=== PATIENT | female | born 1995 | race Caucasian/White ===

== ENCOUNTER 2020-12-17 01:01 | Emergency (ER) | payer MEDICAID, SELFPAY ==
--- NOTE | ~2020-12-17 | US_ITS ---
US OB <= 14 weeks fetus DATE: 12/17/2020 07:18 INDICATION: Abdominal pain TECHNIQUE: Real-time imaging and Doppler evaluation via transabdominal approach COMPARISON: None FINDINGS: Live west intrauterine gestation. normally shaped gestational sac with normal am ount and a fluid, normal surrounding hyperechogenicity consistent with normal decidual reaction. Hear t rate 157 bpm. [place]-rump length 3.79 cm, consistent with 10 weeks 5 days estimated gestational age. Tomosynthesis s ac size of 4.00 cm is consistent with 9 weeks 4 days. 1.4 x 1.9 cm right ovarian cyst. There is blood flow to the right ovary. The left ovary is not demons trated. No pelvic free fluid collection is identified. IMPRESSION: Live single intrauterine gestation; 10 weeks 5 days estimated age by crown-rump mechelle gth 1.4 x 1.9 cm right ovarian cyst Reviewed, dictated and finalized at [facility] Reviewed, dictated and finalized at [facility]. MANAGER IMPRESSION: Live single intrauterine gestation; 10 weeks 5 days estimated age by crown-rump length 1.4 x 1.9 cm right ovarian cyst
[2020-12-17 01:03] VITALS: BP 134/100; PULSE 89; RESP 16; TEMP 36.8; O2SAT 100
[2020-12-17] MEDS: SODIUM CHLORIDE 0.9% IV 1,000 ML 999 ML IV CONT (01:33)
[2020-12-17 01:35] LABS: Basophils Percent Auto 0.2 % (0.2-1.2); Eosinophils Absolute Auto 0.1 K/mm3 (0-0.3); Eosinophils Percent Auto 0.9 % (0-4.4); Hematocrit 37.5 % (37.0-47.0); Hemoglobin 12.6 g/dL (12.0-15.0); Immature Granulocyte Absolute 0.03 K/mm3 (0.00-0.031); Immature Granulocyte Percent A 0.3 % (0-0.5); Lymphocytes Absolute Auto 2.83 K/mm3 (0.9-3.2); Mean Corpuscular HGB Conc 33.6 g/dl (32-36); Mean Corpuscular Volume 86.2 fl (80-100); Mean Platelet Volume 10.1 fl (7.4-10.4); Monocytes Absolute Auto 0.7 K/mm3 (0.1-0.6); Monocytes Percent Auto 7.6 % (2.6-8.5); Neutrophils Absolute Auto 6.1 K/mm3 (1.3-6.7); Platelet Count Result 306 k/mm3 (150-375); Red Blood Count 4.35 M/mm3 (4.2-5.4); Red Cell Distribution Width 13.2 % (11.5-14.5); White Blood Count 9.8 K/mm3 (4.5-10.0)
[2020-12-17 01:39] LABS: Add Urine Microscopic? YES; Appearance Urine Cloudy (Clear); Bacteria Urine Trace /hpf; Bilirubin Urine Negative (Negative); Blood Urine Negative (Negative); Color Urine Yellow (Yellow); Glucose Urine UA Negative (Negative); Ketones Urine Negative (Negative); Leukocyte Esterase Ur 3+ LEU/UL (Negative); Mucus Urine Rare /lpf; Nitrate Urine Negative (Negative); Protein Urine Negative (Negative); Specific Grav Ur 1.013 (1.001-1.035); Squamous Epithelial Cell Urine Many /hpf (Few); Urobilinogen Urine Negative mg/dL (<2.0); WBC Urine 21-30 /hpf
[2020-12-17 02:12] LABS: Alanine Aminotransferase 55 U/L (4-35); Albumin Level 3.9 g/dL (3.5-5.1); Alkaline Phosphatase 83 U/L (38-126); Anion Gap 7 mmol/L (8-16); Aspartate Amino Transferase 48 U/L (14-36); Bilirubin,Total 0.3 mg/dL (0.2-1.3); Blood Urea Nitrogen 8 mg/dL (7-17); Calcium 8.9 mg/dL (8.4-10.2); Carbon Dioxide 28 mmol/L (22-30); Chloride 105 mmol/L (98-107); Estimated CRCL calculation 157 ml/min; Estimated Glomerular Filt Rate > 60; Glucose 99 mg/dL (65-105); Lipase 141 U/L (23-300); Potassium 4.2 mmol/L (3.4-5.0); Sodium 140 mmol/L (137-145)
--- NOTE | 2020-12-17 05:14 | ED.GENADULT ---
HPI - General Adult General Chief complaint: Back Pain/Injury Stated complaint: back pain, 8 weeks Time Seen by Provider: 12/17/20 01:02 Source: RN notes reviewed History of Present Illness HPI narrative: Patient presents emergency department from home for back and abdominal pain. Patient states that this evening she began to have pain throughout her lower back that came upwards and radiating around into her upper abdomen states the pain is described as sharp and stabbing. Patient states she is currently approximately 8 weeks with a home test and is followed by Dr. Avendaño but is not had an ultrasound or formal evaluation she states she did vomit once when the pain began but denies any nausea at this time states she had a similar episode approximately 10 days ago that resolved after taking Tylenol she does not take any pain medication this evening she denies any fevers or chills chest pain shortness of breath vaginal bleeding vaginal discharge or any other symptoms Related Data Allergies Allergy/AdvReac Type Severity Reaction Status Date / Time No Known Allergies Allergy Verified 03/10/17 21:50 Review of Systems Review of Systems: Narrative: Gen.: Denies fevers or chills ENT: Denies congestion Respiratory: Denies shortness of breath or cough CV: Denies chest pain or palpitations GI: See HPI reports Musculoskeletal: Denies back pain or muscle pain Neuro: Denies numbness, tingling, weakness or focal weakness Skin: Denies rash Except as documented, all other systems reviewed and negative [facility] Past Medical History Medical History (Updated 12/17/20 @ 05:29 by Freddy Mary DO) Patient denies significant medical history Social History Social History (Updated 12/17/20 @ 05:27 by Freddy Mary DO) Smoking status: Never smoker Exam Narrative: Exam Narrative: APPEARANCE: No acute distress, nontoxic, resting in bed HEENT: Normocephalic, atraumatic, OMM RESPIRATORY: No respiratory distress, clear to auscultation bilaterally with no rhonchi wheezing or rales CARDIOVASCULAR: RRR s murmur ABDOMINAL: Soft nondistended tender to palpation in epigastric right upper quadrant left upper quadrant no tenderness in right lower quadrant left lower quadrant no rebound or guarding MUSCULOSKELETAl: Moves all extremities. No clubbing, cyanosis or edema. NEURO: Awake and alert. Following commands, speech normal, no focal deficits SKIN:: Warm, dry. Normal Color PSYCHIATRIC: Normal affect/mood Course Course Emergency Course: Patient states abdominal pain has resolved at this time Discussed with Dr. Dewitt presentation work-up agrees plan for discharge to follow-up as an outpatient recommends patient start on Macrobid Discussed with patient results of workup and diagnosis. Discussed need for follow-up with primary care, proper use of medication, and reasons to return to the emergency department. Patient understands and agrees to current treatment plan Vital Signs Vital signs: Vital Signs Temperature 98.3 F 12/17/20 01:03 Pulse Rate 89 12/17/20 01:03 Respiratory Rate 16 12/17/20 01:03 Blood Pressure 134/100 H 12/17/20 01:03 Pulse Oximetry 100 12/17/20 01:03 Temperature 98.3 F 12/17/20 01:03 Pulse Rate 89 12/17/20 01:03 Respiratory Rate 16 12/17/20 01:03 Blood Pressure 134/100 H 12/17/20 01:03 Pulse Oximetry 100 12/17/20 01:03 Medical Decision Making MDM Narrative Medical decision making narrative: Patient's abdomen is soft without significant pain or signs of surgical abdomen on serial exams. Lab and x-ray evaluations are reviewed and patient is felt to be a reasonable candidate for outpatient management. Patient was instructed as to limitations of x-ray and laboratory evaluation and encouraged to return to ED or primary physician for repeat exam in 12 hours if continued or worsening pain. Patient symptoms do sound like biliary colic unable to obtain ul
[2020-12-17] MEDS: NITROFURANTOIN MONOHYD MACROCR 100 MG CAP PO (05:40)
[2020-12-17 05:48] VITALS: BP 120/77; PULSE 90; RESP 18; O2SAT 100
== END 2020-12-17 05:49 | disposition home or self-care (01) ==
PROVIDERS: Emergency Provider Emergency Medicine
DX: O23.91 Unspecified genitourinary tract infection in pregnancy, first trimester (principal); O26.891 Other specified pregnancy related conditions, first trimester; R10.10 Upper abdominal pain, unspecified; Z3A.10 10 weeks gestation of pregnancy
CPT/HCPCS: 36415; 76801; 80053; 81001; 83690; 84702; 85025; 87086; 87088; 96361; 96365; 99284; A9270; J0131; J7030

== ENCOUNTER 2021-01-03 08:18 | Outpatient (CLI) | payer MEDICAID, SELFPAY ==
--- NOTE | ~2021-01-03 | US_ITS ---
EXAMINATION: US OB <= 14 weeks fetus DATE: 01/03/2021 08:47 INDICATION: Supervision of normal during first trimester. TECHNIQUE: Real-time pelvic ultrasound utilizing both a transvaginal and transabdominal probe was pe rformed. The interpreting radiologist was not present for the study. COMPARISON: None. FINDINGS: The uterus measures 11.3 x 6.8 x 7.1 cm. There is an intrauterine gestational sac. A yolk sac and fe migue pole are identified. The crown rump length measures 5.8 cm, which correlates with an estimated ge stational age of 12 weeks and 2 days which is concordant within 2 days of the previously estimated ge stational age of 12 weeks and 4 days. heart motion is identified measuring 155 beats per minute (bpm) by M-mode Doppler. The left and right ovaries were not visualized. There is no free fluid in t he pelvis. IMPRESSION: 1. Single living fetus with heart rate of 155 bpm. 2. [place]-rump length of 5.8 cm which is concordant with previously estimated gestational age based on ultrasound dated 12/17/2020 of 12 weeks 4 day(s) with ultrasound estimated date of delivery (MICHELLE) of 07/14/2021. Reviewed, dictated and finalized at [facility]. IMPRESSION: 1. Single living fetus with heart rate of 155 bpm. 2. [place]-rump length of 5.8 cm which is concordant with previously estimated ge stational age based on ultrasound dated 12/17/2020 of 12 weeks 4 day(s) with ult rasound estimated date of delivery (MICHELLE) of 07/14/2021.
== END 2021-01-03 08:19 | disposition home or self-care (01) ==
PROVIDERS: Visit Provider Physician Assistant
DX: Z34.91 Encounter for supervision of normal pregnancy, unspecified, first trimester (principal); Z3A.12 12 weeks gestation of pregnancy
CPT/HCPCS: 76801

== ENCOUNTER 2021-04-30 11:25 | Emergency (ER) | payer OTHER, SELFPAY ==
--- NOTE | ~2021-04-30 | XR_ITS ---
EXAMINATION: XR chest 1V portable DATE: 04/30/2021 12:46 INDICATION: Cough and shortness of breath. TECHNIQUE: A single frontal view of the chest was obtained. COMPARISON: Chest 2 views 09/04/2012 FINDINGS: The chest demonstrates clear lungs without pneumonia, pleural effusion, or pneumothorax. Th e heart size is normal. IMPRESSION: 1. No acute cardiopulmonary disease. Reviewed, dictated and finalized at location [facility].
[2021-04-30 11:39] VITALS: BP 127/78; PULSE 99; RESP 12; TEMP 36.7; O2SAT 99
--- NOTE | 2021-04-30 12:45 | ECG_ITS ---
Measurements Intervals [place] Rate: 94 P: 21 MD: 124 QRS: 5 QRSD: 86 T: 0 QT: 330 QTc: 414 Interpretive Statements SINUS RHYTHM CONSIDER INFERIOR INFARCT, AGE INDETERMINATE BORDERLINE T WAVE ABNORMALITY- ANTERIOR LEADS BASELINE ARTIFACT- I, II, III, AVR, AVL, AVF, V2-V6 ABNORMAL ECG Electronically Signed On 04-30-2021 13:30:43 CDT by Giuliano Tran D.O.
--- NOTE | 2021-04-30 12:47 | ED.GENADULT ---
HPI - General Adult General Chief complaint: Shortness of Breath/Dyspnea Stated complaint: back pain, 29weeks preg Time Seen by Provider: 04/30/21 12:08 History of Present Illness HPI narrative: Patient is a 25-year-old female who presents ER with intermittent back pain. Began this morning. Mid back and radiates around the sides bilaterally. Took some Tylenol earlier which seemed to improve it but then symptoms came back. No fevers or chills or sweats. She does report some runny nose as well as occasional cough and sneezing. This has been ongoing last couple days. She does not have any chest pain or chest pressure. No hemoptysis. Denies lower extremity swelling or calf pain. Patient is currently 29 weeks . No vaginal bleeding or vaginal discharge. Related Data Allergies Allergy/AdvReac Type Severity Reaction Status Date / Time No Known Allergies Allergy Verified 04/30/21 11:44 Review of Systems Review of Systems: All systems reviewed & are unremarkable except as noted in HPI and below Constitutional: Constitutional: Denies chills, Denies fever(s) and Denies weakness ENT: Reports nasal congestion and Denies sore throat Cardiovascular: Cardiovascular: Denies chest pain and Denies radiating jaw, neck or arm pain Respiratory: Respiratory: Reports cough, Denies dyspnea and Denies wheezing Musculoskeletal: Musculoskeletal: Reports back pain and Denies muscle cramps Neurologic: Denies focal weakness, Denies numbness and Denies tingling PMFSH Past Medical History Medical History (Updated 04/30/21 @ 13:27 by Mario Chavis MD) Depression Surgical History Surgical History (Updated 04/30/21 @ 12:51 by Mario Chavis MD) Hx of tonsillectomy Social History Social History (Updated 12/17/20 @ 05:27 by Freddy Mary DO) Smoking status: Never smoker Gender identity (if verbalized by the patient): Female Exam Narrative: Exam Narrative: GENERAL: Well-appearing, well-nourished, and in no acute distress. HEAD: Normocephalic, atraumatic. CHEST: Clear to auscultation. No respiratory distress. HEART: Regular rate and rhythm. Normal peripheral pulses. ABDOMEN: Soft, nontender, nondistended. Uterus palpated above the umbilicus. Back: Paraspinal muscle tenderness of the levels T10. No midline tenderness. No rash/bruising. EXTREMITIES: Normal range of motion. No edema. SKIN: Warm, dry, no rash. NEURO: Alert and oriented x3. PSYCH: Normal mood and affect. Course Course Emergency Course: Patient informed of results. Discharge home with supportive care. Recommend Tylenol for pain. Vital Signs Vital signs: Vital Signs Temperature 98.0 F 04/30/21 11:39 Pulse Rate 99 04/30/21 11:39 Respiratory Rate 04/30/21 11:39 Blood Pressure 127/78 04/30/21 11:39 Pulse Oximetry 99 04/30/21 11:39 Temperature 98.0 F 04/30/21 11:39 Pulse Rate 99 04/30/21 11:39 Respiratory Rate 12 04/30/21 11:39 Blood Pressure 127/78 04/30/21 11:39 Pulse Oximetry 99 04/30/21 11:39 Medical Decision Making Vital Signs Vital Signs: Vital Signs Temperature 98.0 F 04/30/21 11:39 Pulse Rate 99 04/30/21 11:39 Respiratory Rate 12 04/30/21 11:39 Blood Pressure 127/78 04/30/21 11:39 Pulse Oximetry 99 04/30/21 11:39 Temperature 98.0 F 04/30/21 11:39 Pulse Rate 99 04/30/21 11:39 Respiratory Rate 12 04/30/21 11:39 Blood Pressure 127/78 04/30/21 11:39 Pulse Oximetry 99 04/30/21 11:39 Imaging Data Radiologist's impression: ITS Impressions Chest X-Ray 04/30/21 12:47 IMPRESSION: 1. No acute cardiopulmonary disease. Discharge Plan Discharge Clinical Impression: Acute thoracic myofascial strain Patient Disposition: Home, Self-Care Condition: Stable Instructions: Thoracic Pain (ED) Additional Instructions: Return to the ER if you have severe abdominal pain, you cannot keep down food or water, you have fever over 100
[2021-04-30 13:37] VITALS: BP 114/73; PULSE 100; RESP 18; O2SAT 97
== END 2021-04-30 13:38 | disposition home or self-care (01) ==
PROVIDERS: Emergency Provider Emergency Medicine
DX: O26.893 Other specified pregnancy related conditions, third trimester (principal); S29.019A Strain of muscle and tendon of unspecified wall of thorax, initial encounter; F32.9 Major depressive disorder, single episode, unspecified; Z3A.29 29 weeks gestation of pregnancy; X58.XXXA Exposure to other specified factors, initial encounter
CPT/HCPCS: 71045; 93005; 99283

== ENCOUNTER 2021-06-11 05:29 | Inpatient (IN) | payer OTHER, SELFPAY ==
[2021-06-11] VITALS (287 sets, daily range): BP systolic 83–144; BP diastolic 40–113; PULSE 58–234; RESP 18–20; TEMP 36.3–37.1; O2SAT 64–100; BMI 49.6
[2021-06-11] MEDS: AMPICILLIN 2 GM/NS 100 ML 2 GM/100 ML BAG IVPB (06:47)
[2021-06-11] MEDS: BETAMETHASONE SOD PHOS/ACETATE 30 MG/5 ML VIAL 12 MG IM ×2 (06:47→19:16)
[2021-06-11 06:48] LABS: Basophils Percent Auto 0.2 % (0.2-1.2); Eosinophils Absolute Auto 0.1 K/mm3 (0-0.3); Eosinophils Percent Auto 0.5 % (0-4.4); Hematocrit 35.6 % (37.0-47.0); Hemoglobin 12.2 g/dL (12.0-15.0); Immature Granulocyte Absolute 0.06 K/mm3 (0.00-0.031); Immature Granulocyte Percent A 0.5 % (0-0.5); Lymphocytes Absolute Auto 1.97 K/mm3 (0.9-3.2); Lymphocytes Percent Auto 15.9 % (18.3-44.2); Mean Corpuscular HGB Conc 34.3 g/dl (32-36); Mean Corpuscular Volume 84.8 fl (80-100); Mean Platelet Volume 10.7 fl (7.4-10.4); Monocytes Absolute Auto 0.9 K/mm3 (0.1-0.6); Monocytes Percent Auto 6.9 % (2.6-8.5); Neutrophils Absolute Auto 9.4 K/mm3 (1.3-6.7); Platelet Count Result 280 k/mm3 (150-375); Red Cell Distribution Width 13.2 % (11.5-14.5); White Blood Count 12.4 K/mm3 (4.5-10.0)
[2021-06-11] MEDS: LACTATED RINGERS 1,000 ML 125 ML IV CONT ×4 (06:48→22:12)
[2021-06-11] MEDS: OXYTOCIN 30 UNITS/NS 500 ML 30 UNITS/500 ML BAG IV CONT (06:49)
--- NOTE | 2021-06-11 10:05 | PM.IMHP ---
H&P: HPI History of Present Illness Date/Time: 06/11/21 08:30 Dayana is a 25yo @ 35.2wks who presented to L&D w/ gross rupture of membranes (clear fluid) at 0445 on 06/11/21. She denies bleeding. She denies feeling contractions. She does report some decreased movement. She has had regular care with Dr. Avendaño; records were reviewed Her is complicated by: - PPROM; GBS unknown - Obesity, BMI 49-- on aspirin - MTHFR mutation on folic acid Chief Complaint: leaking fluid Review of Systems Review of Systems: All systems reviewed & are unremarkable except as noted in HPI and below (HPI) PMFSH Past Medical History Medical History Depression Surgical History Surgical History Hx of tonsillectomy Social History Social History Smoking status: Never smoker Second hand tobacco smoke exposure: No Substance use: never Gender identity (if verbalized by the patient): Female Sexual Orientation (if Verbalized by the Patient): Straight or Heterosexual Spiritual care concerns: No Meds Home Medications and Allergies Home Medications Medication Instructions Recorded Confirmed Type PNV cmb#95-ferrous fumarate-FA 1 tablet PO DAILY 06/11/21 06/11/21 History [] aspirin 81 mg PO DAILY 06/11/21 06/11/21 History folic acid 0.8 mg PO DAILY 06/11/21 06/11/21 History Allergies Allergy/AdvReac Type Severity Reaction Status Date / Time No Known Allergies Allergy Verified 04/30/21 11:44 Vital Signs Vital Signs - 24 hr 06/11/21 05:44 06/11/21 05:46 06/11/21 06:02 Pulse Rate 102 H 101 H 91 Blood Pressure 129/78 127/102 H 130/70 06/11/21 06:47 06/11/21 07:02 Pulse Rate 79 94 Blood Pressure 120/53 L 119/77 Exam Const: General: cooperative, comfortable and no acute distress Nutritional Appearance: obese Resp: Effort & Inspection: normal respiratory effort and able to speak in complete sentences Cardio: Rate: regular rate GI: GI Palp: No abdominal tenderness and Yes Soft to palpation : Other: FHT's: 150's/ mod vipul/ + accels/ occasional mild variables - cat 2, reassuring TOCO: ctx's q3min Cervix: 50/-2 Membranes: grossly ruptured, clear 0445 on 06/11/21 Skin: General skin exam: normal color Neuro: General: patient oriented x3 Extrem: General: normal to inspection Psych: Appearance: grossly normal Affect: normal affect Attitude: cooperative H&P: Results Labs Labs: Short CBC 06/11/21 Range/Units 06:38 WBC 12.4 H (4.5-10.0) K/mm3 Hgb 12.2 (12.0-15.0) g/dL Hct 35.6 L (37.0-47.0) % Plt Count 280 (150-375) k/mm3 Assessment and Plan Assessment and plan (1) premature rupture of membranes (PPROM) with unknown onset of labor: Code(s): O42.919 - premature rupture of membranes, unspecified as to length of time between rupture and onset of labor, unspecified trimester Status: Acute (2) Obesity affecting in third trimester: Code(s): O99.213 - Obesity complicating , third trimester Status: Acute Additional Plan - Admit to L&D for IOL as PPROM >34wks-- pitocin per protocol - s/p ANCS x1 - Ampicillin for GBS ppx - Continuous monitoring - Anesthesia consult PRN pain - Records obtained from Dr. Avendaño's office and reviewed
--- NOTE | 2021-06-11 10:05 | WPDHPUPDATE1 ---
History and Physical Update Update Date/Time: 06/11/21 10:05 History and Physical has been reviewed, including an updated exam of the patient. There are NO changes in the patient's condition. Risks, benefits, and alternatives have been discussed and questions answered. Patient agrees to proceed with procedure.
--- NOTE | 2021-06-11 10:08 | WPDANESEPP ---
Anes - Eval Pre Procedure Procedure: Labor Pain Management Date/Time: 06/11/21 10:08 Surgeon: Griffin Preop Diagnosis: Pain During Labor Pre Op Diagnosis: Leaking Fluid Patient Data Age: 25 Gender: F Height: 1.6 m Weight: 127 kg Last Vital Signs Temp 98.3 F 06/11/21 08:00 Pulse 96 06/11/21 10:01 BP 144/101 H 06/11/21 10:01 Allergies Allergy/AdvReac Type Severity Reaction Status Date / Time No Known Allergies Allergy Verified 04/30/21 11:44 Home Medications Medication Instructions Recorded Confirmed Type PNV cmb#95-ferrous fumarate-FA 1 tablet PO DAILY 06/11/21 06/11/21 History [] aspirin 81 mg PO DAILY 06/11/21 06/11/21 History folic acid 0.8 mg PO DAILY 06/11/21 06/11/21 History Laboratory Tests 06/11/21 06/11/21 06/11/21 06:38 06:38 06:38 WBC 12.4 K/mm3 H K/mm3 (4.5-10.0) RBC 4.20 M/mm3 M/mm3 (4.2-5.4) Hgb 12.2 g/dL g/dL (12.0-15.0) Hct 35.6 % L % (37.0-47.0) MCV 84.8 fl fl (80-100) MCH 29.0 pg pg (26-34) MCHC 34.3 g/dl g/dl (32-36) RDW 13.2 % % (11.5-14.5) Plt Count 280 k/mm3 k/mm3 (150-375) MPV 10.7 fl H fl (7.4-10.4) Immature Gran % (Auto) 0.5 % % (0-0.5) Neut % (Auto) 76.0 % H % (45.5-73.1) Lymph % (Auto) 15.9 % L % (18.3-44.2) [place] % (Auto) 6.9 % % (2.6-8.5) Eos % (Auto) 0.5 % % (0-4.4) Baso % (Auto) 0.2 % % (0.2-1.2) Lymph # (Auto) 1.97 K/mm3 K/mm3 (0.9-3.2) [place] # (Auto) 0.9 K/mm3 H K/mm3 (0.1-0.6) Eos # (Auto) 0.1 K/mm3 K/mm3 (0-0.3) Baso # (Auto) 0.0 K/mm3 K/mm3 (0.0-0.1) Abs Immat Gran (auto) 0.06 K/mm3 H K/mm3 (0.00-0.031) Absolute Neuts (auto) 9.4 K/mm3 H K/mm3 (1.3-6.7) Absolute Nucleated RBC 0.0 K/mm3 K/mm3 (0.0-0.012) Nucleated RBC % 0.0 % % (0.0-0.2) RPR Pending HIV 1&2 Ab/P24 Ag 4thGn Blood Type A Positive Antibody Screen Negative 06/11/21 09:34 WBC RBC Hgb Hct MCV MCH MCHC RDW Plt Count MPV Immature Gran % (Auto) Neut % (Auto) Lymph % (Auto) [place] % (Auto) Eos % (Auto) Baso % (Auto) Lymph # (Auto) [place] # (Auto) Eos # (Auto) Baso # (Auto) Abs Immat Gran (auto) Absolute Neuts (auto) Absolute Nucleated RBC Nucleated RBC % RPR HIV 1&2 Ab/P24 Ag 4thGn Pending Blood Type Antibody Screen : gestational age (edc 07/14/21) HCG: positive Patient hx anesthesia problems: none Family hx anesthesia problems: none Prior Surgeries: tonsillectomy PMFSH Past Medical History Medical History Depression Surgical History Surgical History Hx of tonsillectomy Social History Social History Smoking status: Never smoker Second hand tobacco smoke exposure: No Substance use: never Gender identity (if verbalized by the patient): Female Sexual Orientation (if Verbalized by the Patient): Straight or Heterosexual Spiritual care concerns: No Exam Day of Procedure 06/11/21 10:08
[2021-06-11 10:38] LABS: HIV 1/2 Ab P24 Ag Result Negative (Negative)
[2021-06-11] MEDS: AMPICILLIN 1 GM/NS 50 ML 1 GM/50 ML BAG IVPB ×4 (10:50→23:55)
--- NOTE | 2021-06-11 12:22 | PM.OBPNLAB ---
Pain Control Date/time seen: 06/11/21 12:22 Pain control: epidural Pelvic Exam Dilation (cm): 2 (.5) Effacement (%): 80 station: -2 Amniotic membrane status: Ruptured (PPROM, clear 0445 on 06/11/21) Contractions Monitor mode: Internal Contraction frequency: 3 Contraction pattern: Regular Status status: Category l Comments: 120's/mod vipul/ + accels/ no decels Assessment and Plan Pitocin rate (mU/min): 10 Assessment: induction ongoing Plan: continuous present management
--- NOTE | 2021-06-11 16:44 | PM.OBPNLAB ---
Pain Control Date/time seen: 06/11/21 16:44 Pain control: epidural Pelvic Exam Dilation (cm): 4 Effacement (%): 80 station: -2 Amniotic membrane status: Ruptured (PPROM, clear 0445 on 06/11/21) Contractions Monitor mode: Internal Contraction frequency: 3 Contraction pattern: Regular Status status: Category ll Comments: occasional variable, but reassuring Assessment and Plan Pitocin rate (mU/min): 12 Assessment: induction ongoing Plan: continuous present management Comments: - continue abx for GBS unknown
[2021-06-12] VITALS (158 sets, daily range): BP systolic 85–148; BP diastolic 32–116; PULSE 33–170; RESP 14–20; TEMP 36.3–37.1; O2SAT 92–100
[2021-06-12] MEDS: AMPICILLIN 1 GM/NS 50 ML 1 GM/50 ML BAG IVPB (04:14)
[2021-06-12] MEDS: LACTATED RINGERS 1,000 ML 125 ML IV CONT (05:42)
--- NOTE | 2021-06-12 06:13 | PM.OBPNLAB ---
Pain Control Date/time seen: 06/12/21 06:13 Pelvic Exam Dilation (cm): 10 Effacement (%): 10 station: -1 Amniotic membrane status: Ruptured (PPROM, clear 0445 on 06/11/21) Contractions Monitor mode: Internal Contraction frequency: 5 Contraction pattern: Regular Status status: Category ll Comments: occasional lates and variable decels; good variability Assessment and Plan Pitocin rate (mU/min): 10 Plan: Comments: - pt has pushed for ~2hrs without any descent; skull still -1 station with significant caput; narrow ischial spines - proceed with c/s
--- NOTE | 2021-06-12 06:36 | WPDANESEFPP ---
Anes - Eval Final PreProcedure Day of Procedure 06/12/21 06:36 Patient weight: morbidly obese Heart: regular rate and rhythm Lungs: clear to auscultation and normal air movement Airway: Mallampati scale class II Neurological: alert and oriented Last oral intake: >/= 8 hours ASA classification: III Emergent: no Anesthetic plan: proceed Anesthesia type and monitoring: regional epidural and standard monitoring Informed Consent: The patient's anesthetic plan and its attendant risks and benefits were discussed with the patient/family/POA. Questions were solicited and answers provided to the satisfaction of the patient/family/POA.
--- NOTE | 2021-06-12 06:42 | WPDHPUPDATE1 ---
History and Physical Update Update Date/Time: 06/12/21 06:42 History and Physical has been reviewed, including an updated exam of the patient. There are NO changes in the patient's condition. Risks, benefits, and alternatives have been discussed and questions answered. Patient agrees to proceed with procedure.
[2021-06-12] MEDS: ceFAZolin 3 GM/D5W 100 ML 100 ML IVPB (06:45)
--- NOTE | 2021-06-12 07:47 | PM.OBPRVD ---
OB - Delivery Note Procedure Delivery date: 06/12/21 Procedure: Procedures Operation Date: 06/12/21 06:15 Actual Procedure Side Surgeon p Section Bilateral Gardenia Moya MD events: Prolonged Rupture of Membrane (PPROM) Intrapartal events: Prolonged Labor > 20 hours and Deceleration Induction method: per pitocin protocol Delivery monitor: external FHT and internal uterine Route of delivery: Quantitative Blood Loss (ml): 415 Anesthesia type: Epidural Disposition: floor Baby Date of : 06/12/21 Time of : 07:08 Weeks of gestation at delivery: 35 (.3) Infant gender: Male Weight (pounds): 6 Weight (ounces): 2 presentation: vertex position: Right Occiput Transverse Placenta delivery description: Expressed cord vessel description: 3 Vessels score one minute: 6 score five minutes: 9 Narrative: She was counseled on all risks and benefits in detail. She was taken to the operating room where spinal epidural was placed. She was then prepped and draped in the normal sterile fashion. She received 3g Ancef and a time out was performed. The panus was elevated using the Traxi retractor. A Pfannenstiel incision was made in the skin and carried down to the underlying fascia. The fascia was nicked on either side of the midline and the fascial incision was extended laterally and superiorly. The fascia was then elevated and the underlying rectus muscles were dissected off the fascia, superiorly and inferiorly. The rectus muscles were then in the midline and the peritoneum was entered bluntly. Once adequate exposure was obtained, a Mobius self retractor was placed within the abdomen. A bladder flap was created. A low transverse incision was made on the lower uterine segment and clear fluid was noted. The occiput was brought to the hysterotomy and the head was delivered. The shoulder and body then followed without complications. The infant had spontaneous cry and the mouth and nose were bulb suctioned. The cord was clamped and cut and the was handed off to the awaiting pediatric nurse. A segment of the cord was collected for cord gases. The remaining cord blood was collected for typing. With pitocin infusing, the placenta delivered with gentle traction on the cord without complications. The uterus was then cleared out of all clots and debris using a clean, moist lap. The hysterotomy was then repaired in a running, interlocking fashion using 0 Vicryl. A right extension was noted and repaired. A second layer imbricating suture was then made using 0 Vicryl. The hysterotomy was found to be hemostatic and good uterine tone was noted. The bilateral adnexa were examined and found to be normal. The pelvis was cleared of all clots and fluid. The Mobius retractor was removed from the abdomen. The peritoneum, muscle, and fascia were examined and made hemostatic with bovie cautery. The fascia was then repaired using two separate 0 Vicryl sutures in a running fashion. The subcutaneous tissue was then irrigated and made hemostatic with bovie cautery. The subcutaneous tissue was then reapproximated using 2-0 Vicryl. The skin was then closed using 4-0 Monocryl in a running subcuticular fashion. Sponge, lap, needle and instrument counts were correct at the end of the procedure x2. The patient tolerated the procedure well and was taken to recovery in a stable condition.
--- NOTE | 2021-06-12 07:55 | SUR.PHASEI ---
800 ml remains in IV of 1000 LR with 30 units of Pitocin. Pt denies pain, nausea, and itching.
[2021-06-12 09:43] LABS: Alanine Aminotransferase 18 U/L (4-35); Albumin Level 2.8 g/dL (3.5-5.1); Alkaline Phosphatase 150 U/L (38-126); Anion Gap 6 mmol/L (8-16); Aspartate Amino Transferase 20 U/L (14-36); Bilirubin,Total < 0.1 mg/dL (0.2-1.3); Blood Urea Nitrogen 11 mg/dL (7-17); Calcium 8.3 mg/dL (8.4-10.2); Carbon Dioxide 22 mmol/L (22-30); Chloride 105 mmol/L (98-107); Estimated CRCL calculation 120 ml/min; Estimated Glomerular Filt Rate > 60; Glucose 133 mg/dL (65-110); Sodium 133 mmol/L (137-145)
[2021-06-12] MEDS: fentaNYL CITRATE INJ (*CRX) 100 MCG/2 ML VIAL 25 MCG IV PUSH (09:44)
--- NOTE | 2021-06-12 11:02 | PC.NURSE ---
Patient transferred to post room #284 via stretcher. Support person present. Oriented to unit, room, information board, rooming in, admission packet and security measures. Patient verbalizes understanding.
[2021-06-12] MEDS: OXYTOCIN 30 UNITS/NS 500 ML 30 UNITS/500 ML BAG 125 UNITS IV CONT (11:39)
--- NOTE | 2021-06-12 12:30 | PC.NURSE ---
Consult with pt., mother reports she wishes to pump and bottle feed EBM/formula. Discussed the colostrum phase initiating pumping as soon as she feels rested. Breast pump provided due to mother's wishes. Instructions given on breast pump care and usage, pumping schedule, nipple care, and collection and storage of breast milk. Encouraged [id number], breast massage and manual expression to stimulate supply. Pumping log provided and reviewed. Mother states she will call out when ready to begin pumping.
[2021-06-12] MEDS: LORATADINE 10 MG TABLET PO (13:14)
[2021-06-12] MEDS: DEXTROSE 5%/0.45% SOD CHL 1,000 ML 125 ML IV CONT (16:06)
[2021-06-12] MEDS: DOCUSATE SODIUM 100 MG CAPSULE PO (16:08)
[2021-06-12] MEDS: KETOROLAC 30 MG/ML VIAL (*BKC) IV PUSH (16:10)
[2021-06-12] MEDS: diphenhydrAMINE HCl INJ 50 MG/ML VIAL 12.5 MG IV PUSH (20:23)
[2021-06-13] MEDS: IBUPROFEN 600 MG TABLET PO ×3 (04:04→18:20)
[2021-06-13] MEDS: HYDROcodone/acetaminophen (*CRX) 5-325 MG TABLET 1 TAB PO ×4 (04:04→23:24)
[2021-06-13 04:10] VITALS: BP 140/91; PULSE 86; RESP 16; TEMP 36.5; O2SAT 100
[2021-06-13 04:43] LABS: Basophils Percent Auto 0.2 % (0.2-1.2); Hematocrit 32.1 % (37.0-47.0); Hemoglobin 10.5 g/dL (12.0-15.0); Immature Granulocyte Absolute 0.11 K/mm3 (0.00-0.031); Immature Granulocyte Percent A 0.7 % (0-0.5); Lymphocytes Absolute Auto 1.65 K/mm3 (0.9-3.2); Mean Corpuscular HGB Conc 32.7 g/dl (32-36); Mean Corpuscular Hemoglobin 28.5 pg (26-34); Mean Corpuscular Volume 87.2 fl (80-100); Mean Platelet Volume 10.8 fl (7.4-10.4); Monocytes Absolute Auto 1.2 K/mm3 (0.1-0.6); Neutrophils Absolute Auto 13.5 K/mm3 (1.3-6.7); Neutrophils Percent Auto 82.1 % (45.5-73.1); Platelet Count Result 257 k/mm3 (150-375); Red Blood Count 3.68 M/mm3 (4.2-5.4); Red Cell Distribution Width 13.2 % (11.5-14.5); White Blood Count 16.5 K/mm3 (4.5-10.0)
[2021-06-13 07:45] VITALS: BP 129/74; PULSE 91; RESP 16; TEMP 36.3; O2SAT 99
--- NOTE | 2021-06-13 10:55 | WPDANLDPN2 ---
Anes-Prog Note L&D Date/Time: 06/13/21 10:55 Comfortable throughout: section Neuraxial method: spinal Epidural/Spinal procedure site: clean & non-tender Neuro status: Neuro function grossly intact. Cardiovascular status: normal Respiratory status: normal Airway patency: baseline Mental status: baseline Post-Op hydration status: normal Vital Signs: Last Vital Signs Temp 36.3 C L 06/13/21 07:45 Pulse 91 06/13/21 07:45 Resp 16 06/13/21 07:45 BP 129/74 06/13/21 07:45 Pulse Ox 99 06/13/21 07:45 Pain score (VAS): 10/29 I/O: Intake & Output 06/12/21 06/13/21 06/13/21 23:59 07:59 15:59 Intake Total 500 Output Total 525 2670 Balance -525 -1250 Post-procedural complaints: none Patient feedback: Patient satisfied with anesthetic care.
--- NOTE | 2021-06-13 10:57 | WPDANLDNPN2 ---
Anes-Prog Note L&D-Neuraxial Date/Time: 06/13/21 10:57 Neuraxial medications: intrathecal PF morphine Opiod-related complaints: pruritis moderate, treatment effective Patient feedback: Patient satisfied with post-operative pain management.
--- NOTE | 2021-06-13 11:05 | PC.NURSE ---
Consult with pt., mother reports she has not pumped as suggested and plans to pump more regularly to day. Mother states she did not have difficulties or discomfort with pumping, voicing concerns she did not pump more than a drops. Assured mother this is normal and milk should transition in within a few days, continue to pump for stimulation. Reviewed any milk obtained can be give to as part of feeding.
[2021-06-13] MEDS: DOCUSATE SODIUM 100 MG CAPSULE PO ×2 (11:56→18:21)
--- NOTE | 2021-06-13 18:38 | PM.OBPNVD ---
OB - PN: Subj Subjective Date/time seen: 06/13/21 18:38 Interval history: 25yo WF s/p primary LTCS for CPD on 06/12/21 Patient comments: no complaints, pain well controlled, incisional pain, tolerating diet and flatus present baby status: doing well feeding status: breast and bottle feeding OB - PN: Obj Data Labs CBC & Chem 7: 06/13/21 04:24 06/12/21 09:01 Labs: Laboratory Results - last 24 hr 06/13/21 04:24 WBC 16.5 H RBC 3.68 L Hgb 10.5 L Hct 32.1 L MCV 87.2 MCH 28.5 MCHC 32.7 RDW 13.2 Plt Count 257 MPV 10.8 H Immature Gran % (Auto) 0.7 H Neut % (Auto) 82.1 H Lymph % (Auto) 10.0 L [place] % (Auto) 7.0 Eos % (Auto) 0.0 Baso % (Auto) 0.2 Lymph # (Auto) 1.65 [place] # (Auto) 1.2 H Eos # (Auto) 0.0 Baso # (Auto) 0.0 Abs Immat Gran (auto) 0.11 H Absolute Neuts (auto) 13.5 H Absolute Nucleated RBC 0.0 Nucleated RBC % 0.0 OB - PN A/P Assessment and Plan (1) Term delivered: Code(s): O80 - Encounter for full-term uncomplicated delivery Status: Acute (2) Delivery by section: Status: Acute (3) CPD (cephalo-pelvic disproportion): Code(s): O33.9 - Maternal care for disproportion, unspecified Status: Acute (4) premature rupture of membranes (PPROM) with unknown onset of labor: Code(s): O42.919 - premature rupture of membranes, unspecified as to length of time between rupture and onset of labor, unspecified trimester Status: Acute (5) Obesity affecting in third trimester: Code(s): O99.213 - Obesity complicating , third trimester Status: Acute Plan day: 1 Plan: routine care, discharge home and follow up 6 weeks Time Spent With Patient Time: Total time spent is greater than 50% in coordination of care (as documented) at patient's floor/unit and/or counseling patient: Time with patient: less than 15 minutes Review of Systems Review of Systems: All systems reviewed & are unremarkable except as noted in HPI and below Exam Const: General: cooperative, healthy appearing, comfortable, no acute distress, well developed, alert, awake and Physically active Nutritional Appearance: average body habitus Orientation/consciousness: patient oriented x3 Limitations: no limitations HENMT: Head: normal to inspection Eyes: General: appearance normal, both eyes and all related structures Neck: Neck: normal visual inspection Chest: Chest palpation & inspection: normal inspection of the chest Resp: Effort & Inspection: normal respiratory effort Cardio: Rate: regular rate Rhythm: regular rhythm GI: Inspection: normal to inspection, incision (ddi) and obesity GI Palp: Yes Soft to palpation Percussion: Yes normal to percussion Auscultation: normal bowel sounds : External Female Exam: normal external appearance Bimanual exam- vagina & uterus: non-tender Back/Spine/Pelvis: Back: no CVA tenderness Skin: General skin exam: normal color Neuro: General: patient oriented x3, gait normal, tone normal and moves all extremities Extrem: General: normal to inspection and full ROM Psych: Appearance: grossly normal Mental Status: mental status grossly normal Speech and movement: Normal speech and movement present Affect: normal affect Attitude: cooperative Thought process: Normal thought process present Thought content: Yes Normal thought content present Insight: Good insight present (Psych) Judgement: Good judgement present (Psych)
--- NOTE | 2021-06-13 19:05 | PC.NURSE ---
Patient viewed the discharge video Mother & Baby Care, The First Two Weeks . Patient was given the opportunity and encouraged to ask questions. Patient verbalized understanding of information shared and has been given the mother/baby guide for home reference.
[2021-06-13 20:00] VITALS: BP 116/69; PULSE 81; RESP 16; TEMP 36.7; O2SAT 97
[2021-06-14] MEDS: HYDROcodone/acetaminophen (*CRX) 5-325 MG TABLET 1 TAB PO ×2 (05:19→11:10)
[2021-06-14] MEDS: IBUPROFEN 600 MG TABLET PO ×2 (05:19→11:09)
[2021-06-14 07:30] VITALS: BP 149/77; PULSE 88; RESP 18; TEMP 36.7
--- NOTE | 2021-06-14 09:00 | PC.NURSE ---
Mother reports she continues to pump regularly, she is concerned with amount obtained during pumping. Reviewed milk should transition in within a few days. Advised any milk obtained can be used as part of infant feeding. Reviewed transition to breast milk, signs of adequate intake, and engorgement/relief. Reviewed regular medications mother is taking. Information provided per Anjali. Reviewed community resources on the [facility] website and in the Mom/Baby guide. Information on outpatient services provided. Mother has no further questions at this time.
[2021-06-14 09:19] LABS: Rapid Plasma Reagin Non-Reactive (NonReactive)
--- NOTE | 2021-06-14 09:56 | PM.OBDSVD ---
DS: Admitting Diagnosis Admitting Diagnosis IUP 35weeks PPROM labor DS: Discharge Diagnosis Discharge Diagnosis (1) Term delivered: Code(s): O80 - Encounter for full-term uncomplicated delivery Status: Acute (2) Delivery by section: Status: Acute (3) CPD (cephalo-pelvic disproportion): Code(s): O33.9 - Maternal care for disproportion, unspecified Status: Acute (4) Obesity affecting in third trimester: Code(s): O99.213 - Obesity complicating , third trimester Status: Acute (5) premature rupture of membranes (PPROM) with unknown onset of labor: Code(s): O42.919 - premature rupture of membranes, unspecified as to length of time between rupture and onset of labor, unspecified trimester Status: Acute OB - DS: Summary Hospital Course Time spent discussing smoking cessation with patient: 3 to 10 minutes OB Procedures : Ultrasound OB Procedures Intrapartum: low cervical, transverse OB Procedures: : None Peripartum Data Delivery Method: Section Laceration Description: None Episiotomy description: None Procedures: Procedures Operation Date: 06/12/21 06:15 Actual Procedure Side Surgeon p Section Bilateral Gardenia Moya MD 1: Gender: Male Disposition of : home Status at Discharge Cognitive/behavioral status at discharge: normal Functional status at discharge: independent ambulation Overall status at discharge: patient is back to baseline Time Spent with Patient Time attestation: Total time spent providing and/or coordinating discharge services: Time spent: Less than 30 minutes Exam Const: General: comfortable Limitations: no limitations Chest: Breast/axilla inspection: normal inspection of the breasts Resp: Effort & Inspection: normal respiratory effort Cardio: Rate: regular rate GI: GI Palp: Yes Soft to palpation Percussion: Yes normal to percussion Auscultation: normal bowel sounds : General: Yes no CVA tenderness Psych: Appearance: grossly normal Mental Status: mental status grossly normal Affect: normal affect Attitude: cooperative Thought content: Yes Normal thought content present Judgement: Good judgement present (Psych) DS: Data Data Completed and Pending Pending studies at discharge: Pending at discharge 06/12/21 07:10 Surgical [PTH] Routine Labs on day of discharge: Labs from last 24 hours 06/11/21 06:38 RPR Non-reactive Discharge Plan Discharge Attending physician on discharge: Walter Avendaño Discharging Clinician: Walter Avendaño Anticipated Discharge Date/Time: 06/14/21 11:00 Patient Disposition: Home, Self-Care Activity: no straining, may drive after 2 weeks, as tolerated and pelvic rest Diet: regular Wound Care Instructions: follow printed instructions Discharge Instructions: Education: Mom and Baby Guide Given to: Mother Follow-Up: Call your delivering provider's office for an appointment to be seen in: Jun 21 at 1:30pm Mom and baby should come to the [facility] for the follow-up appointment. Appointment Date/Time: June 15, 2021 at 10:00 am What to expect at your follow-up visit: Blood Pressure Check Physical Assessment Call [phone] if you are unable to keep your appointment time. BREAST CARE: * Wear a snug supportive bra. * For engorgement discomfort: Breast Feeding: * Apply warm moist washcloths * Express milk as needed to relieve engorgement * Wear loose clothing Bottle Feeding: * May apply ice packs * For sore nipples: * Identify correct latch-on * Apply warm moist washcloths before and after nursing * Air dry nipples after nursing * May apply Lansinoh cream to nipples ABDOMINAL INCISION: (if applic
[2021-06-14] MEDS: DOCUSATE SODIUM 100 MG CAPSULE PO (11:10)
[2021-06-14] MEDS: MULTIVIT/MIN/PREN/FOL AC/IRON TABLET 1 TAB PO (11:10)
[2021-06-14] MEDS: MEASLES,MUMPS,RUBELLA VACCINE 0.5 ML VIAL SUB-Q (11:11)
[2021-06-15 09:51] VITALS: BP 127/70; PULSE 88; RESP 20; TEMP 36.8; O2SAT 100
== END 2021-06-14 11:55 | disposition home or self-care (01) | DRG 540 ==
LOC: ANHLDR 06:13 → ANHOB2 06-12 11:10
PROVIDERS: Obstetrics & Gynecology; Admitting Provider Obstetrics & Gynecology; Visit Provider Obstetrics & Gynecology
PROC: 10D00Z1 Extraction of Products of Conception, Low, Open Approach (ICD-10-PCS; CPT 59514; principal; 2021-06-12 06:15)
DX: O33.9 Maternal care for disproportion, unspecified (principal); O62.1 Secondary uterine inertia; O99.284 Endocrine, nutritional and metabolic diseases complicating childbirth; E72.12 Methylenetetrahydrofolate reductase deficiency; O99.214 Obesity complicating childbirth; E66.9 Obesity, unspecified; O76 Abnormality in fetal heart rate and rhythm complicating labor and delivery; Z3A.35 35 weeks gestation of pregnancy; Z37.0 Single live birth; O42.913 Preterm premature rupture of membranes, unspecified as to length of time between rupture and onset of labor, third trimester
CPT/HCPCS: 36415; 80053; 84112; 85025; 86592; 86703; 86850; 86900; 86901; 88307; 90710; A9270; G0432; J0131; J0290; J0690; J0702; J1200; J1885; J2274; J2590; J2795; J3010; J7120

== ENCOUNTER 2022-02-10 12:06 | Emergency (ER) | payer OTHER, SELFPAY ==
--- NOTE | ~2022-02-10 | XR_ITS ---
EXAMINATION: XR knee RT min 4V DATE: 02/10/2022 12:51 INDICATION: Lateral right knee pain TECHNIQUE: Anteroposterior, 2 oblique and crosstable lateral views of the right knee were obtained COMPARISON: None. FINDINGS: Alignment is normal. No fracture. No joint effusion/layering lipohemarthrosis. Soft tissues are unre markable. IMPRESSION: 1. Negative right knee radiographs. Reviewed, dictated and finalized at location A.
[2022-02-10 12:26] VITALS: BP 136/94; PULSE 106; RESP 16; TEMP 36.4; O2SAT 99
--- NOTE | 2022-02-10 13:06 | ED.GENADULT ---
HPI - General Adult General Chief complaint: Extremity Injury, Lower Stated complaint: R KNEE INJURY Source: patient Mode of arrival: ambulatory Limitations: no limitations History of Present Illness HPI narrative: Patient presents for evaluation of right knee pain. She indicates she was skating last night and fell. She landed on her right leg. She did not hit her head. She states she now has right knee pain rated 7/10 in severity. No descriptive quality to the pain but it is worse with weightbearing and ambulation. She denies pain otherwise. She also reports some sinus congestion over the past few days. No drainage, sore throat, otalgia, cough, fever, chills. She thinks she has a cold. No recent sick contacts to her knowledge. She brought her eight month old son in for evaluation of drainage from his eyes. Related Data Home Medications Medication Instructions Recorded Confirmed PNV cmb#95-ferrous fumarate-FA 1 tablet PO DAILY 06/11/21 06/11/21 [] aspirin 81 mg PO DAILY 06/11/21 06/11/21 folic acid 0.8 mg PO DAILY 06/11/21 06/11/21 Allergies Allergy/AdvReac Type Severity Reaction Status Date / Time No Known Allergies Allergy Verified 04/30/21 11:44 Review of Systems Review of Systems: CONSTITUTIONAL: Denies fever, chills, or sweats. EYES: Denies visual changes, redness, or discharge. ENT: Reports sinus congestion. Denies rhinorrhea, sore throat, or otalgia. CARDIOVASCULAR: Denies chest pain, palpitations, or edema. RESPIRATORY: Denies cough or dyspnea. GASTROINTESTINAL: Denies abdominal pain, nausea, vomiting, or diarrhea. GENITOURINARY: Denies dysuria or hematuria. SKIN: Denies rash or itching. MUSCULOSKELETAL: Reports right knee pain. Denies back pain or myalgia. NEUROLOGIC: Denies headache, numbness, dizziness, or weakness. PSYCHIATRIC: Denies anxiety or depression. [facility]LY [facility], [facility] Past Medical History Medical History (Updated 02/10/22 @ 13:23 by Lazaro Cline, MARY, ) Depression Surgical History Surgical History History of Hx of tonsillectomy Family History Family History Mother No pertinent past medical history Social History Social History Smoking status: Never smoker Second hand tobacco smoke exposure: No Alcohol intake: never Substance use: never Living arrangements: with family Gender identity (if verbalized by the patient): Female Sexual Orientation (if Verbalized by the Patient): Straight or Heterosexual Spiritual care concerns: No Exam Narrative: GENERAL: Well-appearing, well-nourished, and in no acute distress. HEAD: Normocephalic, atraumatic. EYES: PERRLA and EOMI. ENT: Nares clear, no rhinorrhea or epistaxis. Mucous membranes moist. Oropharynx without tonsillar hypertrophy exudate or other lesions. Bilateral TMs pearly holbrook nonbulging NECK: Supple. No adenopathy or masses. No carotid bruits or JVD CHEST: Clear to auscultation. No respiratory distress. No wheezes rales or rhonchi HEART: Regular rate and rhythm. No murmur heard. Normal peripheral pulses. ABDOMEN: Soft, nontender, nondistended, normal active bowel sounds. EXTREMITIES: Anterior aspect of the right knee is tender to palpation. There is no crepitus or deformity. Decreased range of motion of the right knee secondary to pain. No significant swelling SKIN: Warm, dry, no rash. NEURO: No focal deficits. Alert and oriented x3. PSYCH: Normal mood and affect. Course Course Emergency Course: This is a 26-year-old female who present with complaints of right knee pain. Xray negative for fracture. Consistent with contusion. Advised on RICE therapy. NSAIDs for pain. Provided with marsha wrap. Sinus congestion consistent with viral URI. Advised on supportive care. Advised close follow up and return for worseni
== END 2022-02-10 13:30 | disposition home or self-care (01) ==
PROVIDERS: Emergency Provider Nurse Practitioner
DX: S80.01XA Contusion of right knee, initial encounter (principal); W19.XXXA Unspecified fall, initial encounter; J06.9 Acute upper respiratory infection, unspecified
CPT/HCPCS: 73564; 99213; G0463

== ENCOUNTER 2022-03-11 13:57 | Emergency (ER) | payer OTHER, SELFPAY ==
[2022-03-11 14:10] VITALS: BP 118/32; PULSE 118; RESP 16; TEMP 35.7; O2SAT 100
--- NOTE | 2022-03-11 14:42 | ED.URI ---
HPI - URI/Sore Throat General Chief Complaint: Upper Respiratory Infection Stated Complaint: cough,runny nose,congestion Time Seen by Provider: 03/11/22 14:30 Source: patient and RN notes reviewed Mode of arrival: ambulatory Limitations: no limitations History of Present Illness HPI Narrative: 26-year-old female presents with concern for rhinorrhea, nasal congestion, productive cough that started 3 days ago. She denies any ebeo-ooc-opylihs intervention. She reports feeling tired, having a headache, body aches. She denies a measured temperature, reports however she has felt warm. She denies chills or sweats. She denies nausea, vomiting, diarrhea, shortness of breath. She reports her son has similar symptoms, denies other sick contacts MD elicited complaint: cough and nasal congestion Related Data Allergies Allergy/AdvReac Type Severity Reaction Status Date / Time No Known Allergies Allergy Verified 03/11/22 14:45 Review of Systems Review of Systems: CONSTITUTIONAL: Reports malaise. Denies chills, sweats, or fever. EYES: Denies visual changes, redness, or discharge. ENT: Reports rhinorrhea, congestion, sinus pain. Otalgia and sore throat. CARDIOVASCULAR: Denies chest pain, palpitations, or edema. RESPIRATORY: Reports cough. Denies dyspnea. GASTROINTESTINAL: Denies abdominal pain, nausea, vomiting, diarrhea SKIN: Denies rash or itching. MUSCULOSKELETAL: Reports myalgia. NEUROLOGIC: Reports headache. All systems reviewed & are unremarkable except as noted in HPI and below PMFSH Past Medical History Medical History (Updated 03/11/22 @ 15:20 by Yanely Cantu NP) Depression Surgical History Surgical History History of Hx of tonsillectomy Family History Family History Mother No pertinent past medical history Social History Social History Smoking status: Never smoker Second hand tobacco smoke exposure: No Alcohol intake: never Substance use: never Gender identity (if verbalized by the patient): Female Sexual Orientation (if Verbalized by the Patient): Straight or Heterosexual Spiritual care concerns: No Comments At time of signature, agree with nursing past medical, surgical, social and family history. There is no relevant family history pertinent to the presenting complaint Exam Narrative: GENERAL: Nontoxic appearing. And in no acute distress. HEAD: Normocephalic EYES: PERRLA, conjunctivae clear ENT: Nares clear, turbinates edematous and erythematous, clear discharge. Mucous membranes moist. TM pearly holbrook with sharp light reflex bilaterally; no tragal tenderness. Oropharynx not erythematous without lesions. Tonsils not enlarged and without exudate, no drooling, no hoarseness, no trismus, uvula midline. NECK: Supple. No lymphadenopathy CHEST: Clear to auscultation, breath sounds equal. No wheezing, rhonchi, rales, or stridor. No respiratory distress, speaks in full sentences. HEART: Regular rate and rhythm. No murmur heard. SKIN: Warm, dry, no rash. NEURO: Alert and oriented x3. PSYCH: Normal mood and affect Course Course Emergency Course: Patient is aware of diagnosis, understands and agrees to treatment plan. Anticipatory guidance given. Patient agrees to follow-up as directed and is aware of reasons to seek care at the emergency department. Portions of this record may have been created with voice recognition software Level of Care: Express Care Visit Vital Signs Vital signs: Vital Signs Temperature 96.2 F L 03/11/22 14:10 Pulse Rate 118 H 03/11/22 14:10 Respiratory Rate 16 03/11/22 14:10 Blood Pressure 118/32 L 03/11/22 14:10 Pulse Oximetry 100 03/11/22 14:10 Temperature 96.2 F L 03/11/22 14:10 Pulse Rate 118 H 03/11/22 14:10 Respiratory Rate 16 03/11/22 14:10 Blood Press
== END 2022-03-11 15:26 | disposition home or self-care (01) ==
PROVIDERS: Emergency Provider Nurse Practitioner
DX: J10.1 Influenza due to other identified influenza virus with other respiratory manifestations (principal); Z20.822 Contact with and (suspected) exposure to COVID-19
CPT/HCPCS: 87426; 87804; 99213; C9803; G0463

== ENCOUNTER 2022-06-07 16:01 | Emergency (ER) | payer OTHER, SELFPAY ==
[2022-06-07 16:16] VITALS: BP 130/89; PULSE 96; RESP 16; TEMP 36.8; O2SAT 99
--- NOTE | 2022-06-07 16:27 | ED.URI ---
HPI - URI/Sore Throat General Chief Complaint: Upper Respiratory Infection Stated Complaint: cough/osorio/ear pain/tooth ache Time Seen by Provider: 06/07/22 16:20 Source: patient and RN notes reviewed Mode of arrival: ambulatory Limitations: no limitations History of Present Illness HPI Narrative: 26 y/o female presented for c/o sinus pressure, congestion, cough for 4 days, and headache is severe and pounding. Pt also reports left upper and lower dental pain for which she is already seeking treatment due to poor dentition. She took cold and flu medication yesterday. Denies sob, n/v/d/f/c. Reports sick contacts. MD elicited complaint: cough Related Data Allergies Allergy/AdvReac Type Severity Reaction Status Date / Time No Known Allergies Allergy Verified 06/07/22 16:41 Review of Systems Review of Systems: CONSTITUTIONAL: denies malaise, chills, sweats, fever EYES: Denies visual changes, redness, or discharge ENT: Reports rhinorrhea, congestion, sinus pain, denies otalgia, sore throat CARDIOVASCULAR: Denies chest pain, palpitations, edema RESPIRATORY: Reports cough, post nasal drainage. Denies dyspnea GASTROINTESTINAL: Denies abdominal pain, nausea, vomiting, diarrhea SKIN: Denies rash or itching MUSCULOSKELETAL: denies myalgia PMFSH Past Medical History Medical History Depression Surgical History Surgical History History of Hx of tonsillectomy Family History Family History Mother No pertinent past medical history Social History Social History Smoking status: Never smoker Second hand tobacco smoke exposure: No Alcohol intake: never Substance use: never Gender identity (if verbalized by the patient): Female Sexual Orientation (if Verbalized by the Patient): Straight or Heterosexual Spiritual care concerns: No Exam Narrative: GENERAL: Ill-appearing, nontoxic EYES: conjunctivae clear ENT: Mucous membranes moist. sinus congestion noted. TMs pearly holbrook with dull light reflex bilaterally; no tragal tenderness. Oropharynx erythematous without lesions or exudate, no drooling, no hoarseness, no trismus, uvula midline. Multiple broken teeth with caries, left upper gum swelling with black discoloration c/w blood at #14. No tripod positioning, muffled voice, soft palate or pharyngeal wall bulging NECK: Supple. No lymphadenopathy CHEST: Clear to auscultation, breath sounds equal. No wheezing, rhonchi, rales, or stridor. No respiratory distress, speaks in full sentences. HEART: Regular rate and rhythm. No murmur heard. SKIN: Warm, dry, no rash. Course Course Emergency Course: Patient is aware of diagnosis, understands and agrees to treatment plan. Anticipatory guidance given. Patient agrees to follow-up as directed and is aware of reasons to seek care at the emergency department. Portions of this record may have been created with voice recognition software Level of Care: Express Care Visit Vital Signs Vital signs: Vital Signs Temperature 98.2 F 06/07/22 16:16 Pulse Rate 96 06/07/22 16:16 Respiratory Rate 16 06/07/22 16:16 Blood Pressure 130/89 06/07/22 16:16 Pulse Oximetry 99 06/07/22 16:16 Oxygen Delivery Room Air 06/07/22 16:16 Temperature 98.2 F 06/07/22 16:16 Pulse Rate 96 06/07/22 16:16 Respiratory Rate 16 06/07/22 16:16 Blood Pressure 130/89 06/07/22 16:16 Pulse Oximetry 99 06/07/22 16:16 Oxygen Delivery Room Air 06/07/22 16:16 reviewed MDM - URI/Sore Throat MDM Narrative Medical decision making narrative: Covid and flu neg. Advised supportive measures for URI and signs/symptoms to go to the ER. Pt is appropriate for outpt treatment and f/u. Differential Diagnosis Differential diagnosis: Likely upper r
== END 2022-06-07 17:26 | disposition home or self-care (01) ==
PROVIDERS: Emergency Provider Nurse Practitioner Family
DX: J06.9 Acute upper respiratory infection, unspecified (principal); Z20.822 Contact with and (suspected) exposure to COVID-19
CPT/HCPCS: 87426; 87804; 99213; C9803; G0463

== ENCOUNTER 2022-09-10 09:15 | Emergency (ER) | payer OTHER, SELFPAY ==
--- NOTE | 2022-09-10 09:32 | ED.URI ---
HPI - URI/Sore Throat General Chief Complaint: Upper Respiratory Infection Stated Complaint: Sinus Time Seen by Provider: 09/10/22 09:32 Source: patient Mode of arrival: ambulatory Limitations: no limitations History of Present Illness HPI Narrative: Ms Luna is a 26-year-old female patient presenting to clinic today with complaints of sinus congestion, runny nose, cough, and headache x2 days. Denies any fever chills. She denies any known exposure to anybody with COVID, flu, or strep. MD elicited complaint: cough, rhinorrhea and nasal congestion Related Data Home Medications Medication Instructions Recorded Confirmed Nexplanon 09/10/22 Allergies Allergy/AdvReac Type Severity Reaction Status Date / Time No Known Allergies Allergy Verified 09/10/22 10:01 Review of Systems Review of Systems: Pertinent positives per HPI. Patient denies any fever, chills, rash, headache, visual changes, dizziness, cough, shortness of breath, chest pain, palpitations, nausea, vomiting, diarrhea, constipation, abdominal pain, or any urinary issues. PMFSH Past Medical History Medical History Depression Surgical History Surgical History History of Hx of tonsillectomy Family History Family History Mother No pertinent past medical history Social History Social History Smoking status: Never smoker Second hand tobacco smoke exposure: No Alcohol intake: never Substance use: never Gender identity (if verbalized by the patient): Female Sexual Orientation (if Verbalized by the Patient): Straight or Heterosexual Spiritual care concerns: No Comments At the time of my signature, I reviewed and agree with the nursing past medical, surgical, social, and family history. There is no relevant family history pertinent to the patient complaint. Exam Narrative: General: Well-developed, well nourished, in no apparent distress Head: Normocephalic, atraumatic Eyes: Pupils equally round and reactive to light bilaterally, EOM intact, sclera and conjunctive clear, no discharge, lids normal Ears: TMs intact and dull with mild bulging, ear canals clear, no drainage, grossly hearing normal. Nose: Nares patent, clear nasal discharge, moderate inflammation, no sinus tenderness. Mouth: Oral pharynx without lesions or masses, good dentition, MMM. Tonsils surgically absent oropharynx red Neck: Supple, trachea midline, no enlargement of anterior or posterior cervical nodes, no thyroid masses or goiter palpable. Cardio: Regular rate and rhythm, s1 and s2 normal, no murmur appreciated. Resp: Clear to auscultation bilaterally, no rhonchi, rales, wheezing or rubs Course Course Emergency Course: Portions of this record may have been created with voice recognition software. Level of Care: Express Care Visit Vital Signs Vital signs: Vital Signs Temperature 36.2 C L 09/10/22 10:03 Pulse Rate 81 09/10/22 10:03 Respiratory Rate 20 09/10/22 10:03 Blood Pressure 135/78 09/10/22 10:03 Pulse Oximetry 100 09/10/22 10:03 Oxygen Delivery Room Air 09/10/22 10:03 Temperature 36.2 C L 09/10/22 10:03 Pulse Rate 81 09/10/22 10:03 Respiratory Rate 20 09/10/22 10:03 Blood Pressure 135/78 09/10/22 10:03 Pulse Oximetry 100 09/10/22 10:03 Oxygen Delivery Room Air 09/10/22 10:03 Vital signs reviewed MDM - URI/Sore Throat MDM Narrative Medical decision making narrative: At the time of visit patient patient is resting comfortably on the exam table influenza and COVID testing were performed. influenza and COVID test were negative. I suspect patient has an upper respiratory infection /viral syndrome. Supportive measures were discussed with the patien
[2022-09-10 10:03] VITALS: BP 135/78; PULSE 81; RESP 20; TEMP 36.2; O2SAT 100
== END 2022-09-10 10:48 | disposition home or self-care (01) ==
PROVIDERS: Emergency Provider Nurse Practitioner Family
DX: J06.9 Acute upper respiratory infection, unspecified (principal); Z20.822 Contact with and (suspected) exposure to COVID-19
CPT/HCPCS: 87426; 87804; 99213; C9803; G0463

== ENCOUNTER 2022-12-03 14:11 | Emergency (ER) | payer OTHER, SELFPAY ==
[2022-12-03 14:18] VITALS: BP 121/71; PULSE 82; RESP 16; TEMP 36.6; O2SAT 100
[2022-12-03 14:19] VITALS: BP 121/71; PULSE 82; RESP 16; TEMP 36.6; O2SAT 100
--- NOTE | 2022-12-03 14:20 | ED.URI ---
HPI - URI/Sore Throat General Chief Complaint: Upper Respiratory Infection Stated Complaint: Sinus/Sore Throat Time Seen by Provider: 12/03/22 14:23 Source: patient and RN notes reviewed Mode of arrival: ambulatory Limitations: no limitations History of Present Illness HPI Narrative: 27-year-old female presented for complaint of headache, body aches, sinus pressure/congestion, cough, onset 2 days. Denies shortness of breath, wheezing, nausea, vomiting, diarrhea, fevers or chills. She has not taken anything for symptoms. She denies sick contacts. MD elicited complaint: cough Related Data Home Medications Medication Instructions Recorded Confirmed Nexplanon 1 09/10/22 11/22/22 multivitamin 1 tablet PO DAILY 11/22/22 12/03/22 Allergies Allergy/AdvReac Type Severity Reaction Status Date / Time ketorolac [From Toradol] AdvReac Mild Headache Verified 11/22/22 14:56 Review of Systems Review of Systems: per HPI PMFSH Past Medical History Medical History Anxiety CPD (cephalo-pelvic disproportion) Depression Encounter to establish care Frequent headaches Headache Migraine Morbid obesity with BMI of 50.0-59.9, adult Obesity affecting in third trimester Patient denies significant medical history premature rupture of membranes (PPROM) with unknown onset of labor Screening for diabetes mellitus Term delivered Surgical History Surgical History Delivery by section History of Hx of cholecystectomy Hx of tonsillectomy Family History Family History Mother No pertinent past medical history Sibling Diabetes mellitus Other Hypertension Depression Social History Social History Smoking status: Never smoker Second hand tobacco smoke exposure: No Alcohol intake: current Drinks per week: 2 Alcohol use details: Wine Substance use: never Substance use type: does not use Lack of Transportation: No Lack of Food: Never True Current Housing: I Have Housing Concerned About Future Housing: No Difficulty Paying Gas/Electric Bills: No Difficulty Paying for Meds: No Currently Unemployed: No Education: High School Diploma/GED Difficulty w/ Childcare or Family Care: No Living arrangements: with family Gender identity (if verbalized by the patient): Female Sexual Orientation (if Verbalized by the Patient): Straight or Heterosexual Spiritual care concerns: No Exam Narrative: GENERAL: mildly Ill-appearing, nontoxic EYES: PERRLA, conjunctivae clear ENT: Mucous membranes moist. nasal congestion. TM pearly holbrook with dull light reflex bilaterally; no tragal tenderness. Oropharynx erythematous without lesions or exudate, no drooling, no hoarseness, no trismus, uvula midline. No tripod positioning, muffled voice, soft palate or pharyngeal wall bulging NECK: Supple. No lymphadenopathy CHEST: Clear to auscultation, breath sounds equal. No wheezing, rhonchi, rales, or stridor. No respiratory distress, speaks in full sentences. HEART: Regular rate and rhythm. No murmur heard. SKIN: Warm, dry, no rash. Course Course Emergency Course: Patient is aware of diagnosis, understands and agrees to treatment plan. Anticipatory guidance given. Patient agrees to follow-up as directed and is aware of reasons to seek care at the emergency department. Portions of this record may have been created with voice recognition software Level of Care: Express Care Visit Vital Signs Vital signs: Vital Signs Temperature 98 F 12/03/22 14:18 Pulse Rate 82 12/03/22 14:18 Respiratory Rate 16 12/03/22 14:18 Blood Pressure 121/71 12/03/22 14:18 Pulse Oximetry 100 12/03/22 14:18 Oxygen Delivery Room Air 12/03/22 14:18
== END 2022-12-03 14:51 | disposition home or self-care (01) ==
PROVIDERS: Emergency Provider Nurse Practitioner Family; PCP Nurse Practitioner Family
DX: J06.9 Acute upper respiratory infection, unspecified (principal); Z20.822 Contact with and (suspected) exposure to COVID-19; E66.01 Morbid (severe) obesity due to excess calories; Z68.43 Body mass index [BMI] 50.0-59.9, adult; F41.9 Anxiety disorder, unspecified; F32.A Depression, unspecified
CPT/HCPCS: 87081; 87426; 87880; 99213; C9803; G0463

== ENCOUNTER → 2023-01-31 16:02 | Outpatient (CLI) | payer OTHER, SELFPAY ==
--- NOTE | ~2023-01-31 | XR_ITS ---
XR hip RT 2V w AP pelvis 01/31/2023 16:31 Indication: Right hip pain for 2 years Procedure: AP pelvis and 2 views right hip Comparison: No prior studies for comparison. Findings: Pelvic rings are intact. Sacral foramen are symmetric. There is anatomic alignment. No frac ture, subluxation or dislocation. Impression: 1: No significant bone or joint abnormality. Reviewed, dictated and finalized at location B. Impression: 1: No significant bone or joint abnormality.
--- NOTE | ~2023-01-31 | XR_ITS ---
XR_[id number] INDICATION: Neck pain radiating to the right arm. TECHNIQUE: 4 views of the cervical spine. FINDINGS: Comparison to cervical spine series dated 08/16/2015 There is reversal of cervical lordosis which may be due to muscle spasm or patient positioning. The c ervical spine is visualized to the cervicothoracic junction. There is no prevertebral soft tissue sw elling, listhesis, or loss of vertebral body height. Intervertebral disc spaces are normal. The oss eous central canal is patent. No displaced cervical spine fractures are identified. IMPRESSION: 1. No significant abnormality of the cervical spine. Reviewed, dictated and finalized at location B.
--- NOTE | ~2023-01-31 | XR_ITS ---
XR shoulder RT min 2V 01/31/2023 16:31 INDICATION: Right shoulder pain PROCEDURE: 4 views right shoulder COMPARISON: No prior studies for comparison. FINDINGS: Fracture, dislocation or subluxation is not identified. There is anatomic alignment. The so ft tissues appear within normal limits. No foreign bodies are identified. IMPRESSION: 1: NO ACUTE BONE OR JOINT ABNORMALITY IDENTIFIED. Reviewed, dictated and finalized at location B.
== END ==
PROVIDERS: PCP Family Medicine; Visit Provider Nurse Practitioner Family
DX: M54.2 Cervicalgia (principal); M25.551 Pain in right hip; M25.511 Pain in right shoulder
CPT/HCPCS: 72040; 73030; 73502

== ENCOUNTER 2023-08-26 16:40 | Emergency (ER) | payer OTHER, SELFPAY ==
[2023-08-26 17:06] VITALS: BP 101/68; PULSE 117; RESP 16; TEMP 37.3; O2SAT 98
--- NOTE | 2023-08-26 17:58 | ED.GENADULT ---
HPI - General Adult General Chief complaint: Upper Respiratory Infection Stated complaint: sinus pressure, cough,chest pressure Source: patient Mode of arrival: ambulatory Limitations: no limitations History of Present Illness HPI narrative: Patient presents for evaluation of sick symptoms since last night. Symptoms include sinus pressure, cough, mild dyspnea with exertion, and runny nose. No fever, chills, nausea, vomiting, diarrhea. She also has a slightly sore throat. Her son and nephew, to whom she has a guardian, or here for sick symptoms as well. She has not taken any medications to assist with her symptoms. Related Data Home Medications Medication Instructions Recorded Confirmed etonogestrel 68 mg subdermal 1 implant subdermal ONCE 08/26/23 08/26/23 implant (Nexplanon) sumatriptan succinate 50 mg tablet mg PO 08/26/23 08/26/23 Allergies Allergy/AdvReac Type Severity Reaction Status Date / Time ketorolac [From Toradol] AdvReac Mild Headache Verified 08/26/23 17:16 Review of Systems Review of Systems: CONSTITUTIONAL: Denies fever, chills, or sweats. EYES: Denies visual changes, redness, or discharge. ENT: Reports sinus congestion, runny nose, and mild sore. CARDIOVASCULAR: Denies chest pain, palpitations, or edema. RESPIRATORY: Reports cough mild dyspnea on exertion. GASTROINTESTINAL: Denies abdominal pain, nausea, vomiting, or diarrhea. GENITOURINARY: Denies dysuria or hematuria. SKIN: Denies rash or itching. MUSCULOSKELETAL: Denies back pain, joint pain, or myalgia. NEUROLOGIC: Denies headache, numbness, dizziness, or weakness. PSYCHIATRIC: Denies anxiety or depression. [facility] Past Medical History Medical History Anxiety Cervicalgia CPD (cephalo-pelvic disproportion) Depression Encounter to establish care Frequent headaches Headache Migraine Morbid obesity with BMI of 50.0-59.9, adult Obesity affecting in third trimester Patient denies significant medical history premature rupture of membranes (PPROM) with unknown onset of labor Right hip pain Right shoulder pain Screening for diabetes mellitus Term delivered Surgical History Surgical History Delivery by section History of Hx of cholecystectomy Hx of tonsillectomy Family History Family History Mother No pertinent past medical history Sibling Diabetes mellitus Other Hypertension Depression Social History Social History Smoking status: Never smoker Second hand tobacco smoke exposure: No Alcohol intake: current Alcohol use details: Rarely Substance use: never Substance use type: does not use Lack of Transportation: No Lack of Food: Never True Current Housing: I Have Housing Concerned About Future Housing: No Difficulty Paying Gas/Electric Bills: No Difficulty Paying for Meds: No Currently Unemployed: No Education: High School Diploma/GED Difficulty w/ Childcare or Family Care: No Living arrangements: with family Gender identity (if verbalized by the patient): Female Sexual Orientation (if Verbalized by the Patient): Straight or Heterosexual Spiritual care concerns: No Exam Narrative: GENERAL: Well-appearing, well-nourished, and in no acute distress. HEAD: Normocephalic, atraumatic. EYES: PERRLA and EOMI. ENT: Nares clear, no rhinorrhea or epistaxis. Mucous membranes moist. Oropharynx without tonsillar hypertrophy exudate or other lesions. Bilateral TMs pearly holbrook nonbulging NECK: Supple. No adenopathy or masses. No carotid bruits or JVD CHEST: Clear to auscultation. No respiratory distress. No wheezes rales or rhonchi HEART: Regular rate and rhythm. No murmur heard. Normal peripheral p
== END 2023-08-26 18:16 | disposition home or self-care (01) ==
PROVIDERS: Emergency Provider Nurse Practitioner; PCP Family Medicine
DX: B34.9 Viral infection, unspecified (principal); J44.9 Chronic obstructive pulmonary disease, unspecified; E66.01 Morbid (severe) obesity due to excess calories; Z68.42 Body mass index [BMI] 45.0-49.9, adult; F41.9 Anxiety disorder, unspecified; F32.A Depression, unspecified
CPT/HCPCS: 99211; G0463

== ENCOUNTER 2024-12-08 16:24 | Emergency (ER) | payer OTHER, SELFPAY ==
[2024-12-08 16:40] VITALS: BP 99/88; PULSE 98; RESP 16; TEMP 36.6; O2SAT 97
--- NOTE | 2024-12-08 16:42 | ED.EAR ---
HPI - Ear Problem General Chief complaint: Ear Stated complaint: EARACHE Time Seen by Provider: 12/08/24 16:42 Source: patient Mode of arrival: ambulatory Limitations: no limitations History of Present Illness HPI Narrative: 29-year-old female presents with right ear pain. Saw PCP 2 weeks ago for right ear pain and completed amoxicillin. Continues to have pain. Afebrile. All Systems reviewed and negative except as noted. Related Data Home Medications ?Medication ?Instructions ?Recorded ?Confirmed ?Last Taken ?Type etonogestrel 68 mg subdermal 1 implant subdermal ONCE 08/26/23 06/25/24 Unknown History implant (Nexplanon) Allergies Allergy/AdvReac Type Severity Reaction Status Date / Time ketorolac (From Toradol) AdvReac Mild Headache Verified 12/08/24 16:45 Review of Systems Review of Systems: CONSTITUTIONAL: Denies fever, chills, or sweats. EYES: Denies visual changes, redness, or discharge. ENT: Denies rhinorrhea, congestion, sore throat. Reports pain to right ear. CARDIOVASCULAR: Denies chest pain, palpitations, or edema. RESPIRATORY: Denies cough or dyspnea. GASTROINTESTINAL: Denies abdominal pain, nausea, vomiting, or diarrhea. GENITOURINARY: Denies dysuria or hematuria. SKIN: Denies rash or itching. MUSCULOSKELETAL: Denies back pain, joint pain, or myalgia. NEUROLOGIC: Denies headache, numbness, or weakness. PSYCHIATRIC: Denies anxiety or depression. All other systems reviewed are negative, except as documented in HPI. PMFSH Past Medical History Medical History Anxiety B12 deficiency Bronchitis Cervicalgia CPD (cephalo-pelvic disproportion) Depression Encounter to establish care Folic acid deficiency Frequent headaches Headache Migraine Morbid obesity with BMI of 45.0-49.9, adult Morbid obesity with BMI of 50.0-59.9, adult Obesity affecting in third trimester Patient denies significant medical history premature rupture of membranes (PPROM) with unknown onset of labor Right hip pain Right shoulder pain Screening for diabetes mellitus Term delivered Surgical History Surgical History Delivery by section History of Hx of cholecystectomy Hx of tonsillectomy Family History Family History Mother No pertinent past medical history Sibling Diabetes mellitus Other Hypertension Depression Social History Social History Smoking status: Never smoker Second hand tobacco smoke exposure: No Alcohol intake: current Alcohol use details: Rarely Substance use: never Substance use type: does not use Lack of Transportation: No Lack of Food: Never True Current Housing: I Have Housing Concerned About Future Housing: No Difficulty Paying Gas/Electric Bills: No Difficulty Paying for Meds: No Currently Unemployed: No Education: High School Diploma/GED Difficulty w/ Childcare or Family Care: No Living arrangements: with family Gender identity (if verbalized by the patient): Female Sexual Orientation (if Verbalized by the Patient): Straight or Heterosexual Spiritual care concerns: No Comments At time of signature, agree with nursing past medical, surgical, social and family history. There is no relevant family history pertinent to the presenting complaint. Exam Narrative: GENERAL: This is a well-nourished, well-developed patient, in no apparent distress. HEAD: normocephalic, atraumatic. EYES: PERRL. Sclera clear/white. Vision is grossly intact. EARS: External ears normal, auditory canals clear and without drainage, right TM is erythematous and retracted. Left TM is normal. Hearing grossly intact. NOSE: External nose normal NECK: Neck supple, non-tender without lymphadenopathy, masses or thyromegaly. CARDIOVASCULAR: Regular rate and rhythm without murmurs, gallops, or rubs. RESPIRATORY: Clear to auscultation. Breath sounds equal bilaterally. No wheezes, rales, or rhonchi. SKIN: warm, Dry, intact with no suspicious lesions or rash, good texture and turgor. NEURO: awake, alert, and oriented to person, place and time. There were no obvious focal neurologic abnormalities. EXTREMITIES: No joint tenderness, effusion, or edema noted. Course Course Level of Care: Express Care Visit Vital Signs Vital signs: Vital Signs Temperature 36.6 C 12/08/24 16:40 Pulse Rate 98 12/08/24 16:40 Respiratory Rate 16 12/08/24 16:40 Blood Pressure 99/88 L 12/08/24 16:40 Pulse Oximetry 97 12/08/24 16:40 Temperature 36.6 C 12/08/24 16:40 Pulse Rate 98 12/08/24 16:40 Respiratory Rate 16 12/08/24 16:40 Blood Pressure 99/88 L 12/08/24 16:40 Pulse Oximetry 97 12/08/24 16:40 Reviewed Medical Decision Making MDM Narrative Medical decision making narrative: Will treat right otitis media with cefdinir. Treatment failure on amoxicillin. Please be advised this is a medical document. It is intended for [id number] communication. It is written in medical language and may contain unfamiliar abbreviations or verbiage. Medical documents are intended to carry relevant information, facts as evident, and the clinical opinion of the practitioner at the time of the encounter. This report may have been done utilizing a voice recognition system. Attempts have been made to correct errors. However, there may be uncorrected grammatical, spelling, and recognition errors present. The file time of this note does not necessarily represent the time of service. Vital Signs Vital Signs: Vital Signs Temperature 36.6 C 12/08/24 16:40 Pulse Rate 98 12/08/24 16:40 Respiratory Rate 16 12/08/24 16:40 Blood Pressure 99/88 L 12/08/24 16:40 Pulse Oximetry 97 12/08/24 16:40 Temperature 36.6 C 12/08/24 16:40 Pulse Rate 98 12/08/24 16:40 Respiratory Rate 16 12/08/24 16:40 Blood Pressure 99/88 L 12/08/24 16:40 Pulse Oximetry 97 12/08/24 16:40 Discharge Plan Discharge Clinical Impression: Acute right otitis media Patient Disposition: Home, Self-Care Condition: Stable Instructions: Antibiotic Form, Ear Infection (ED) Additional Instructions: Take antibiotic as prescribed until gone. Take ibuprofen or Tylenol every 6-8 hours as needed for pain. See your doctor if pain is not improving. Patient Language: Bhutanese Prescriptions: New cefdinir 300 mg capsule 300 mg PO Q12H 10 Days Qty: 20 0RF No Action Nexplanon 68 mg Implant 1 implant SUBDERMAL ONCE Rx Instructions: as a single dose topiramate [Topamax] 50 mg tablet 50 mg PO BID Qty: 60 11RF rizatriptan 10 mg tablet See Rx Instructions PO .COMPLEX Qty: 9 11RF Rx Instructions: take 1 tab at onset of headache; if no relief may repeat 1 tab after at least 2 hrs cyclobenzaprine 10 mg tablet 5 - 10 mg PO QHS PRN (Reason: muscle spasm) Qty: 30 0RF escitalopram oxalate [Lexapro] 20 mg tablet 20 mg PO DAILY Qty: 30 11RF buspirone 7.5 mg tablet 7.5 mg PO BID Qty: 60 0RF Follow-up/Referrals: Blanca Root NP [Primary Care Provider] - Time of Disposition: 16:55
[2024-12-08 17:07] VITALS: BP 129/74
== END 2024-12-08 17:08 | disposition home or self-care (01) ==
PROVIDERS: Emergency Provider Nurse Practitioner Family; PCP Nurse Practitioner Family
DX: H66.91 Otitis media, unspecified, right ear (principal); E66.01 Morbid (severe) obesity due to excess calories; Z68.42 Body mass index [BMI] 45.0-49.9, adult
CPT/HCPCS: 99213; G0463

== ENCOUNTER 2025-04-10 08:03 | Emergency (ER) | payer OTHER, SELFPAY ==
--- NOTE | 2025-04-10 08:08 | ED_ITS ---
HPI - URI/Sore Throat General Chief Complaint: Upper Respiratory Infection Stated Complaint: Sinus Infection Symptoms Patient presents to the [facility] care complaints of sinus pressure, pressure in both ears, headaches, fatigue, cough, sore throat, and pain neck pain 2-3 days ago. Patient reports history of sinus infections and allergies. Has been using an [id number] allergy medication and decongestant with minimal relief of symptoms sick. Denies fever, chills, body aches, dizziness, shortness of breath, wheezing, nausea, vomiting, or diarrhea. Related Data Home Medications ?Medication ?Instructions ?Recorded ?Confirmed ?Last Taken ?Type etonogestrel 68 mg subdermal 1 implant subdermal ONCE 08/26/23 04/08/25 Unknown History implant (Nexplanon) Allergies Allergy/AdvReac Type Severity Reaction Status Date / Time ketorolac (From Toradol) AdvReac Mild Headache Verified 04/10/25 08:13 Review of Systems Constitutional: Constitutional: Reports as per HPI, Denies chills, Reports fatigue and Denies fever(s) Eyes: Eyes: Reports no additional eye complaints ENT: Reports as per HPI, Denies vertigo, Denies dizziness, Reports nasal congestion and Reports sore throat Cardiovascular: Cardiovascular: Reports as per HPI and Denies chest pain Respiratory: Respiratory: Reports as per HPI, Denies chest congestion, Reports cough, Denies dyspnea and Denies wheezing Gastrointestinal: Gastrointestinal: Reports no additional gastrointestinal complaints Genitourinary: Genitourinary: Reports no additional female genitourinary complaints Musculoskeletal: Musculoskeletal: Reports no additional musculoskeletal complaints Neurologic: Reports as per HPI, Denies vertigo, Denies dizziness and Reports headache(s) Psychiatric: Psychiatric: Reports no additional psychiatric complaints Endocrine: Endocrine: Reports no additional endocrine complaints Hematologic/Lymphatic: Hematologic/Lymphatic: Reports no additional hematologic/lymphatic complaints Allergic/Immunologic: Allergic/Immunologic: Reports no additional allergic/immunologic complaints PMFSH Past Medical History Medical History Encounter for adjustment and management of other implanted devices Encounter for surveillance of other contraceptives Morbid obesity with BMI of 45.0-49.9, adult Folic acid deficiency B12 deficiency Bronchitis Right shoulder pain Right hip pain Cervicalgia Anxiety Frequent headaches Encounter to establish care Morbid obesity with BMI of 50.0-59.9, adult Screening for diabetes mellitus Migraine Headache CPD (cephalo-pelvic disproportion) Term delivered Obesity affecting in third trimester premature rupture of membranes (PPROM) with unknown onset of labor Depression Patient denies significant medical history Surgical History Surgical History Hx of cholecystectomy History of Hx of tonsillectomy Family History Family History Mother No pertinent past medical history Sibling Diabetes mellitus Other Hypertension Depression Social History Social History Smoking status: Never smoker Second hand tobacco smoke exposure: No Alcohol intake: current Alcohol use details: Rarely Substance use: never Substance use type: does not use Do You Feel Safe in your Home?: Yes Lack of Transportation: No Lack of Food: Never True Current Housing: I Have Housing Concerned About Future Housing: No Difficulty Paying Gas/Electric Bills: No Difficulty Paying for Meds: No Currently Unemployed: No Education: High School Diploma/GED Difficulty w/ Childcare or Family Care: No Living arrangements: with family Occupation/Education: occupation Gender identity (if verbalized by the patient): Female Sexual Orientation (if Verbalized by the Patient): Straight or Heterosexual Spiritual care concerns: No Exam Const: General: healthy appearing, no acute distress and alert Nutritional Appearance: well nourished Orientation/consciousness: patient oriented x3 Limitations: no limitations HENMT: Head: normal to inspection Ears: external ears normal, TM's normal bilaterally and EAC's normal Face/Nose/Sinus: Nasal discharge present (thick, clear ) not purulent Face and sinus: sinus tenderness (bilateral ) maxillary Mouth: Yes moist mucous membranes Throat: posterior oropharynx abnormal (mild erythema noted, no edema ) Neck: Neck: no lymphadenopathy Chest: Chest palpation & inspection: normal inspection of the chest Resp: Effort & Inspection: normal respiratory effort Auscultation: clear to auscultation bilaterally Cardio: Rate: regular rate Rhythm: regular rhythm Heart sounds: no murmurs Skin: General skin exam: normal color Rashes: no rashes Wounds: no wounds Neuro: General: patient oriented x3 Cranial nerves: Yes Nystagmus not present Speech: normal speech Gait exam (Neuro): Normal gait present Psych: Mental Status: mental status grossly normal Affect: normal affect Attitude: cooperative Course Course Level of Care: Express Care Visit MDM - URI/Sore Throat MDM Narrative Medical decision making narrative: Strep, COVID, and flu completed in clinic Discharge instructions reviewed with patient, as well as provided in writing per nursing staff. The instructions also include specific and strict return/GO TO THE ER as well as f/u information. All questions have been answered, and the patient deny any further questions with discharge and discharge plan. Differential Diagnosis Differential diagnosis: Likely upper respiratory infection, otitis media, sinusitis, viral infection, bronchitis and pharyngitis Medical Records Attestation: I reviewed the patient's medical records. Lab Data Attestation: I reviewed the patient's lab results. Discharge Plan Discharge Clinical Impression: Strep pharyngitis Patient Disposition: Home Condition: Stable Instructions: Antibiotic Form, Sinusitis (ED), Strep Throat (ED) Additional Instructions: After 24 hours on antibiotics throw tooth brush away and start using a new one. Do not share drinks. Take Motrin alternating with Tylenol for pain and fever alternating every 4 hours. Increase fluids, avoid caffeine. Follow up with Primary provider if not getting better this week Patient Language: Maltese Prescriptions: New amoxicillin 875 mg tablet 875 mg PO Q12H Qty: 20 0RF prednisone 50 mg tablet 50 mg PO DAILY Qty: 7 0RF No Action Nexplanon 68 mg Implant 1 implant SUBDERMAL ONCE Rx Instructions: as a single dose bupropion HCl [Wellbutrin XL] 150 mg tablet extended release 24 hr 150 mg PO QAM Qty: 30 5RF rizatriptan 10 mg tablet See Rx Instructions PO .COMPLEX Qty: 9 11RF Rx Instructions: take 1 tab at onset of headache; if no relief may repeat 1 tab after at least 2 hrs cyclobenzaprine 10 mg tablet 5 - 10 mg PO QHS PRN (Reason: muscle spasm) Qty: 30 0RF fluoxetine [Prozac] 20 mg capsule 20 mg PO DAILY Qty: 30 5RF topiramate [Topamax] 50 mg tablet 50 mg PO BID Qty: 180 3RF Follow-up/Referrals: PHYSICIAN,SOFTWARE INSTALLER [Primary Care Provider] - Time of Disposition: 08:32
[2025-04-10 08:15] VITALS: BP 111/61; PULSE 108; RESP 16; TEMP 36.6; O2SAT 100
[2025-04-10 08:32] LABS: EDCOVIDSCREEN Negative (Negative); EDINFLUASCREEN Negative (Negative); EDINFLUBSCREEN Negative (Negative); EDSTREPNEGPOS1 Positive (Negative)
== END 2025-04-10 08:39 | disposition home or self-care (01) ==
PROVIDERS: Emergency Provider Nurse Practitioner Family
DX: J02.0 Streptococcal pharyngitis (principal); Z20.822 Contact with and (suspected) exposure to COVID-19
CPT/HCPCS: 87426; 87804; 87880; 99213; G0463

== ENCOUNTER 2025-08-16 17:22 | Emergency (ER) | payer OTHER, SELFPAY ==
--- NOTE | 2025-08-16 17:26 | ED.EAR ---
HPI - Ear Problem General Chief complaint: Ear Stated complaint: EAR PRESSURE Source: patient and RN notes reviewed Mode of arrival: ambulatory Limitations: no limitations History of Present Illness HPI Narrative: Patient is a 29-year-old female who presents to the [facility] with complaints of bilateral ear tenderness and fullness. She states that her symptoms have been present for the last 2 weeks but have worsened over the last week. She denies any ear drainage. States that recently she has noted decreased hearing. Related Data Home Medications ?Medication ?Instructions ?Recorded ?Confirmed ?Last Taken ?Type etonogestrel 68 mg subdermal 1 implant subdermal ONCE 08/26/23 08/16/25 Unknown History implant (Nexplanon) Allergies Allergy/AdvReac Type Severity Reaction Status Date / Time ketorolac (From Toradol) AdvReac Mild Headache Verified 08/16/25 17:44 Review of Systems Review of Systems: CONSTITUTIONAL: Denies fever, chills, or sweats. EYES: Denies visual changes, redness, or discharge. ENT: Reports ear pain CARDIOVASCULAR: Denies chest pain, palpitations, or edema. RESPIRATORY: Denies cough or dyspnea. GASTROINTESTINAL: Denies abdominal pain, nausea, vomiting, or diarrhea. GENITOURINARY: Denies dysuria or hematuria. SKIN: Denies rash or itching. MUSCULOSKELETAL: Denies back pain, joint pain, or myalgia. NEUROLOGIC: Denies headache, numbness, or weakness. Pertinent positives per HPI. [facility] Past Medical History Medical History Urinary frequency Encounter for adjustment and management of other implanted devices Encounter for surveillance of other contraceptives Morbid obesity with BMI of 45.0-49.9, adult Folic acid deficiency B12 deficiency Bronchitis Right shoulder pain Right hip pain Cervicalgia Anxiety Frequent headaches Encounter to establish care Morbid obesity with BMI of 50.0-59.9, adult Screening for diabetes mellitus Migraine Headache CPD (cephalo-pelvic disproportion) Term delivered Obesity affecting in third trimester premature rupture of membranes (PPROM) with unknown onset of labor Depression Patient denies significant medical history Surgical History Surgical History Hx of cholecystectomy History of Hx of tonsillectomy Family History Family History Mother No pertinent past medical history Sibling Diabetes mellitus Other Hypertension Depression Social History Social History Smoking status: Never smoker Second hand tobacco smoke exposure: No Alcohol intake: current Alcohol use details: Rarely Substance use: never Substance use type: does not use Do You Feel Safe in your Home?: Yes Lack of Transportation: No Lack of Food: Never True Current Housing: I Have Housing Concerned About Future Housing: No Difficulty Paying Gas/Electric Bills: No Difficulty Paying for Meds: No Currently Unemployed: No Education: High School Diploma/GED Difficulty w/ Childcare or Family Care: No Living arrangements: with family Occupation/Education: occupation Gender identity (if verbalized by the patient): Female Sexual Orientation (if Verbalized by the Patient): Straight or Heterosexual Spiritual care concerns: No Comments At the time of my signature, I reviewed and agree with the nursing past medical, surgical, social, and family history. There is no relevant family history pertinent to the patient complaint. Exam Narrative: GENERAL: This is a well-nourished, well-developed patient, in no apparent distress. HEAD: normocephalic, atraumatic. EYES: Sclera clear/white. Vision is grossly intact. EARS: External ears normal, auditory canals clear and without drainage. TMs erythematous with effusion. NOSE: External nose normal with no obvious nasal discharge, nares without redness, no rhinorrhea. THROAT: Mucous membranes moist, posterior pharynx clear. NECK: Neck supple, non-tender without lymphadenopathy, masses or thyromegaly. CARDIOVASCULAR: Regular rate and rhythm without murmurs, gallops, or rubs. RESPIRATORY: Clear to auscultation. Breath sounds equal bilaterally. No wheezes, rales, or rhonchi. GASTROINTESTINAL: Abdomen soft, non-tender, nondistended. Bowel sounds are active. No hepato-splenomegaly, or palpable masses. No guarding. SKIN: warm, intact with no suspicious lesions or rash, good texture and turgor. NEURO: awake, alert, and oriented to person, place and time. There were no obvious focal neurologic abnormalities. Course Course Level of Care: Express Care Visit Vital Signs Vital signs: Vital Signs Temperature 97.5 F L 08/16/25 17:42 Pulse Rate 88 08/16/25 17:42 Respiratory Rate 16 08/16/25 17:42 Blood Pressure 132/88 08/16/25 17:42 Pulse Oximetry 99 08/16/25 17:42 Temperature 97.5 F L 08/16/25 17:42 Pulse Rate 88 08/16/25 17:42 Respiratory Rate 16 08/16/25 17:42 Blood Pressure 132/88 08/16/25 17:42 Pulse Oximetry 99 08/16/25 17:42 Reviewed Medical Decision Making MDM Narrative Medical decision making narrative: Take antibiotics as directed. May given ibuprofen and/or Tylenol as needed for pain and/or fever. Follow up with primary care provider in 7-10 days to have ear rechecked. Differential Diagnosis Differential Diagnosis: otitis media, otitis externa, cerumen impaction Vital Signs Vital Signs: Vital Signs Temperature 97.5 F L 08/16/25 17:42 Pulse Rate 88 08/16/25 17:42 Respiratory Rate 16 08/16/25 17:42 Blood Pressure 132/88 08/16/25 17:42 Pulse Oximetry 99 08/16/25 17:42 Temperature 97.5 F L 08/16/25 17:42 Pulse Rate 88 08/16/25 17:42 Respiratory Rate 16 08/16/25 17:42 Blood Pressure 132/88 08/16/25 17:42 Pulse Oximetry 99 08/16/25 17:42 Critical Care Time Critical Care Time Critical Care Time: No Discharge Plan Discharge Clinical Impression: Acute otitis media with effusion of both ears Patient Disposition: Home Condition: Stable Instructions: Antibiotic Form, Ear Infection (ED) Additional Instructions: Take antibiotics as directed. May given ibuprofen and/or Tylenol as needed for pain and/or fever. Follow up with primary care provider in 7-10 days to have ear rechecked. Patient Language: Wolof Prescriptions: New amoxicillin-pot clavulanate 875-125 mg tablet 1 tablet PO Q12H 10 Days Qty: 20 0RF No Action Nexplanon 68 mg Implant 1 implant SUBDERMAL ONCE Rx Instructions: as a single dose rizatriptan 10 mg tablet See Rx Instructions PO .COMPLEX Qty: 9 11RF Rx Instructions: take 1 tab at onset of headache; if no relief may repeat 1 tab after at least 2 hrs cyclobenzaprine 10 mg tablet 5 - 10 mg PO QHS PRN (Reason: muscle spasm) Qty: 30 0RF fluoxetine [Prozac] 20 mg capsule 20 mg PO DAILY Qty: 30 5RF Zepbound 2.5 mg/0.5 mL pen injector 2.5 mg subcut WEEKLY Qty: 2 0RF bupropion HCl [Wellbutrin XL] 300 mg tablet extended release 24 hr 300 mg PO QAM Qty: 30 11RF topiramate [Topamax] 50 mg tablet 50 mg PO BID Qty: 180 3RF Follow-up/Referrals: Blanca Root APRN [Primary Care Provider, Family Practice] Time of Disposition: 17:45
[2025-08-16 17:42] VITALS: BP 132/88; PULSE 88; RESP 16; TEMP 36.4; O2SAT 99
== END 2025-08-16 17:56 | disposition home or self-care (01) ==
PROVIDERS: Emergency Provider Nurse Practitioner; PCP Nurse Practitioner Family
DX: H65.193 Other acute nonsuppurative otitis media, bilateral (principal); E66.01 Morbid (severe) obesity due to excess calories; Z68.42 Body mass index [BMI] 45.0-49.9, adult; F41.9 Anxiety disorder, unspecified; F32.A Depression, unspecified
CPT/HCPCS: 99213; G0463